=== PATIENT | male | born 1950 | race Two or more races ===

== ENCOUNTER 2017-08-26 13:32 | Emergency (ER) | payer OTHER ==
[~2017-08-26] VITALS: Ht 172.7 cm; Wt 82.8 kg
[2017-08-26 13:49] VITALS: Ht 172.7 cm; Wt 82.8 kg
[2017-08-26 15:27] VITALS: BP 127/86
== END 2017-08-26 15:27 | disposition home or self-care (01) ==
LOC: ED 13:32
DX: R33.9 Retention of urine, unspecified (principal); R10.30 Lower abdominal pain, unspecified; I10 Essential (primary) hypertension; E11.9 Type 2 diabetes mellitus without complications; E78.00 Pure hypercholesterolemia, unspecified